=== PATIENT | female | born 1990 | race Hispanic/Latino ===

== ENCOUNTER 2017-09-24 19:40 | Emergency (ER) | payer OTHER ==
[2017-09-24 19:40] VITALS: BMI 29.1
[2017-09-24 20:33] LABS: HCG,QUALITATIVE URINE POSITIVE (NEGATIVE)
[2017-09-24] MEDS ORDERED: Sodium Chloride 0.9% 1,000 ML IV ONE (20:36)
[2017-09-24 20:38] LABS: SQUAMOUS EPITHIAL 1 /hpf (0-5); URINE BACTERIA RARE (<OCC); URINE BILIRUBIN NEGATIVE (NEGATIVE); URINE BLOOD NEGATIVE (NEGATIVE); URINE CLARITY Clear (Clear); URINE COLOR Yellow (YELLOW); URINE GLUCOSE (UA) NORMAL (Normal); URINE LEUKOCYTE ESTERASE NEG Leu/uL (Negative); URINE PROTEIN NEGATIVE (NEGATIVE)
[2017-09-24 21:04] LABS: BASO # 0.1 K/uL (0.0-0.2); EOS # 0.2 K/uL (0.0-0.7); EOS % 2.3 % (0.0-4.0); HEMOGLOBIN 13.4 g/dL (11.0-16.0); LYMPH # 2.3 K/uL (1.0-4.3); LYMPH % 29.1 % (20.0-40.0); MEAN CELL VOLUME 89.9 fL (81.0-99.0); MEAN CORPUSCULAR HEMOGLOBIN 30.3 pg (27.0-31.0); MEAN CORPUSCULAR HGB CONC 33.7 g/dL (33.0-37.0); MEAN PLATELET VOLUME 7.6 fL (7.2-11.7); MONO # 0.6 K/uL (0.0-0.8); MONO % 8.1 % (0.0-10.0); NEUT # 4.7 K/uL (1.8-7.0); NEUT % 59.5 % (50.0-75.0); NRBC % 0.1 % (0.0-2.0); RBC 4.43 Mil/uL (3.80-5.20); RED CELL DISTRIBUTION WIDTH 14.5 % (11.5-14.5)
[2017-09-24 21:18] LABS: GFR AFRICAN-AMERICAN > 60; GFR NON-AFRICAN AMERICAN > 60
[2017-09-24 21:21] LABS: ALB/GLOB RATIO 1.4 (1.0-2.1); ALBUMIN 4.5 g/dL (3.5-5.0); ALT/SGPT 18 U/L (9-52); AST/SGOT 35 U/L (14-36); BLOOD UREA NITROGEN 14 mg/dL (7-17)
[2017-09-24 22:56] VITALS: BP 102/63; PULSE 58; RESP 16; TEMP 98.2; O2SAT 100
--- NOTE | 2017-09-24 23:43 | C.PDOC ---
Time Seen by Provider: 09/24/17 20:01 Chief Complaint (Nursing): Female Genitourinary History Per: Patient Onset/Duration Of Symptoms: Days (few) Current Symptoms Are (Timing): Still Present Severity: Moderate Quality Of Discomfort: Cramping Alleviating Factors: None Additional History Per: Prior Records Abnormal Vaginal Bleeding: Yes Past Medical History Reviewed: Historical Data, Nursing Documentation, Vital Signs Vital Signs: Last Vital Signs Temp 98.2 F 09/24/17 22:55 Pulse 58 L 09/24/17 22:55 Resp 16 09/24/17 22:55 BP 102/63 09/24/17 22:55 Pulse Ox 100 09/24/17 22:55 - Medical History PMH: Asthma (history of asthma), Migraine Other Surgeries: Surgery to remove ectopic on left side - [facility] Procedures MONITORING NOS (05/28/14) IMMOBILIZ/WOUND ATTN NEC (10/31/14) INJECT/INFUSE NEC (12/16/13) LAPAROSCOPY (06/24/13) MANUAL ASSIST DELIV NEC (06/09/14) REMOV TUBE & ECTOP PREG (06/24/13) REPAIR OB LACERATION NEC (06/09/14) Family History: States: Unknown Family Hx - Social History Hx Tobacco Use: Yes Hx Alcohol Use: No Hx Substance Use: No - Immunization History Hx Tetanus Toxoid Vaccination: Yes Hx Influenza Vaccination: Yes Hx Pneumococcal Vaccination: Yes Review Of Systems Except As Marked, All Systems Reviewed And Found Negative. Constitutional: Negative for: Fever, Weakness Cardiovascular: Negative for: Chest Pain Respiratory: Negative for: Shortness of Breath Gastrointestinal: Positive for: Nausea Genitourinary: Positive for: Vaginal Bleeding, Pelvic Pain Skin: Negative for: Rash Neurological: Negative for: Weakness, Numbness Physical Exam - Physical Exam Appears: Non-toxic, No Acute Distress Skin: Normal Color, Warm, Dry, No Rash Head: Atraumatic, Normacephalic Eye(s): bilateral: PERRL, EOMI Neck: Normal ROM, Supple Cardiovascular: Rhythm Regular Respiratory: Normal Breath Sounds, No Accessory Muscle Use Gastrointestinal/Abdominal: Soft, Tenderness (mild suprapubic), No Guarding, No Rebound Back: No CVA Tenderness Extremity: Normal ROM Neurological/Psych: Oriented x3, Normal Motor, Normal Sensation ED Course And Treatment - Laboratory Results Result Diagrams: 09/24/17 20:58 08/07/18 20:58 Lab Interpretation: No Acute Changes Interpretation Of Abnormal: Pt's records show pt is Rh positive. Urine POC: Positive O2 Sat by Pulse Oximetry: 100 Pulse Ox Interpretation: Normal - CT Scan/US Pelvic US Other Rad Studies (CT/US): Read By Radiologist, Radiology Report Reviewed CT/US Interpretation: IMPRESSION: There is no intrauterine identified. By report, the patient is and the hCG is low,. correlate. Findings may be reflective of a early which is not visualized. However , given. the lack of , a ectopic is not completely excluded, although one is not identified. Disposition Counseled Patient/Family Regarding: Studies Performed, Diagnosis, Need For Followup - Disposition Disposition: HOME/ ROUTINE Disposition Time: 23:44 Condition: STABLE Additional Instructions: Follow up with your Industrial Chemistry Teacher doctor or return to the ER in 2 days for a repeat hormone level in order to rule out ectopic . Return to the ER immediately if you develop severe pain, heavy bleeding, dizziness, worsening of symptoms or if you have any other concerns. Instructions: Bleeding With (DC) - Clinical Impression Clinical Impression: Vaginal bleeding during
--- NOTE | 2017-09-25 09:01 | US ---
Date of service: 09/24/2017 HISTORY: Pain/bleeding, r/o ectopic. h/o left ectopic surg. COMPARISON: None available. TECHNIQUE: Transabdominal and transvaginal FINDINGS: UTERUS: Measures 9.4 x 4.4 x 5.0 cm. Normal in size and appearance. No fibroid or other mass lesion seen. ENDOMETRIUM: Measures 6 mm in diameter. No intrauterine gestational sac identified. CERVIX: No cervical abnormality identified. RIGHT OVARY: Measures 3.3 x 1.4 x 2.8 cm. No solid mass. Normal flow. LEFT OVARY: Measures 2.9 x 1.6 x 2.8 cm. No solid mass. Normal flow. FREE FLUID: No significant free fluid noted. OTHER FINDINGS: None. IMPRESSION: No intrauterine gestation. Cannot rule out ectopic on the basis of this examination. Please correlate with beta HCG evaluation. The preliminary findings for this examination were reported by [facility] at 10:07 p.m. on 09/24/2017. There is concurrence of this report with the preliminary findings.
== END 2017-09-24 23:48 | disposition home or self-care (01) ==
LOC: C.ER 19:40
DX: O46.90 Antepartum hemorrhage, unspecified, unspecified trimester (principal); Z3A.00 Weeks of gestation of pregnancy not specified
CPT/HCPCS: 76830; 76856; 80053; 81001; 84702; 84703; 85025; 96360; 99285; J7030